=== PATIENT | male | born 1965 | race Hispanic/Latino ===

== ENCOUNTER → 2023-02-18 | Outpatient (CLI) | payer OTHER ==
[2023-02-18 16:17] LABS: SPECIMENTYPE,BODY FLUID SYNOVIAL
[2023-02-18 16:18] LABS: APPEARANCE BODY FLUID CLEAR (CLEAR); COLOR,BODY FLUID YELLOW (LT YELLOW); TOTAL VOLUME,BODY FLUID 35 mL
[2023-02-18 17:26] LABS: BODY FLUID RBC 450 /cu. mm.; BODY FLUID WBC 340 /cu. mm.
[2023-02-18 19:54] LABS: BF LYMPHOCYTE 2 %; BF TOTAL CELLS COUNTED 100
[2023-02-18 21:40] LABS: CRYSTALS, SYNOVIAL FLUID None Seen
== END | disposition home or self-care (01) ==
LOC: LAB 12:05
PROVIDERS: ATTEND Student in an Organized Health Care Education/Training Program
DX: M25.462 Effusion, left knee (principal)
CPT/HCPCS: 87071; 87076; 87205; 89051; 89060